=== PATIENT | female | born 1985 | race Caucasian/White ===

== ENCOUNTER 2023-02-04 19:31 | Emergency (ER) | payer BC, MEDICAID ==
[~2023-02-04] VITALS: Ht 144.8 cm; Wt 84.1 kg
[~2023-02-04 19:31] MED LIST: ARIP2TAB3 PO; BUS15T PO; CYAN500T71 PO; CYCL-394 PO; DULO-31 PO; FAMO-1 PO; FLUT16SP13 NS; GABA600T PO; LEVA15HF4 IH; LORA-512 PO; MULT1CAP34 PO; NORCO10T PO; PANT-47 PO; PROP10TA10 PO; RES15C PO; SUCR1ORA12 PO; TOP100T PO
[2023-02-04 20:18] LABS: BASOPHILS % (AUTO) 0.5 % (0-1); EOSINOPHILS # (AUTO) 0.2 X10'3 (0-0.9); EOSINOPHILS % (AUTO) 3.3 % (0-6); HEMATOCRIT 43.3 % (35.0-45.0); HEMOGLOBIN 14.6 g/dl (12.0-16.0); LYMPHOCYTES # (AUTO) 2.9 X10'3 (1.1-4.8); LYMPHOCYTES % (AUTO) 37.8 % (21-51); MEAN CORPUSCULAR HGB CONC 33.8 g/dL (33.0-36.5); MEAN CORPUSCULAR VOLUME 94.6 FL (78-98); MEAN PLATELET VOLUME 7.1 FL (7.4-10.4); MONOCYTES # (AUTO) 0.7 X10'3 (0-0.9); MONOCYTES % (AUTO) 9.3 % (2-12); NEUTROPHILS # (AUTO) 3.7 X10'3 (1.8-7.7); NEUTROPHILS % (AUTO) 49.1 % (42-75); PLATELET COUNT 387 X10'3 (140-440); RED BLOOD COUNT 4.58 X10'6 (4.20-5.60); RED CELL DISTRIBUTION WIDTH 13.1 % (11.5-14.5); WHITE BLOOD COUNT 7.5 X10'3 (4.5-11.0)
[2023-02-04 20:38] LABS: ALANINE AMINOTRANSFERASE 27 U/L (12-78); ALBUMIN 3.8 G/DL (3.4-5.0); ALKALINE PHOSPHATASE 89 IU/L (46-116); ANION GAP 5 (8-16); ASPARTATE AMINO TRANSFERASE 19 U/L (10-37); BILIRUBIN,TOTAL 0.3 MG/DL (0.1-1.0); BLOOD UREA NITROGEN 7 MG/DL (7-18); BUN/CREATININE RATIO 8.9 (10.0-20.0); CALCIUM 9.3 MG/DL (8.5-10.1); CHLORIDE 103 MMOL/L (99-107); CREATININE 0.79 MG/DL (0.40-0.90); GLUCOSE 88 MG/DL (70-104); POTASSIUM 3.6 MMOL/L (3.5-5.1); SODIUM 139 MMOL/L (135-145); TOTAL CARBON DIOXIDE 31.2 MMOL/L (24-32); TOTAL PROTEIN 7.6 G/DL (6.4-8.2); eCRCL 60 ML/MIN; eGFR 82 ML/MIN
[2023-02-04 20:38] LABS: URINE HCG NEGATIVE (NEG)
[2023-02-04 20:40] LABS: LIPASE 13 U/L (16-77)
[2023-02-04 20:53] LABS: CLARITY,URINE SLIGHTLY CLOUDY (Clear); COLOR,URINE YELLOW (Yellow); PROTEIN,URINE NEGATIVE (Neg); UA COLLECTION TYPE CLN CATCH MIDSTREAM
[2023-02-04 20:54] LABS: BILIRUBIN,URINE NEGATIVE (Neg); GLUCOSE, URINE NEGATIVE (Neg); KETONES,URINE NEGATIVE (Neg); LEUKOCYTE ESTERASE ,URINE NEGATIVE (Neg); NITRITES, URINE NEGATIVE (Neg); OCCULT BLOOD,URINE NEGATIVE (Neg)
[2023-02-04 20:56] LABS: BACTERIA,URINE FEW /HPF (Neg); MUCUS STRANDS FEW /LPF (Neg); RBC,URINE 0-2 /HPF (0-2); SQUAMOUS EPITHELIAL CELL,UR FEW /LPF (FEW); WBC,URINE 0-4 /HPF (0-4)
[2023-02-04 20:57] LABS: AMORPHOUS PHOSPHATES 2+
[2023-02-04] MEDS ORDERED: normal saline 1000ML IV soln IVB ONE (22:50)
[2023-02-04] MEDS ORDERED: mag hydrox/Alum hydrox/simeth 30ml oral suspension PO ONE (22:50)
[2023-02-04] MEDS ORDERED: diphenhydrAMINE 50 mg/ml inj IV ONE (22:50)
[2023-02-04] MEDS ORDERED: morphine 4 MG/ML inj SYRINge IV PRN (22:50)
[2023-02-04] MEDS ORDERED: LIDOcaine Viscous 15ml cup MM PRN (22:50)
[2023-02-04] MEDS ORDERED: pantoprazole 40mg IV 80 MG in normal saline 100ml IV soln 100 ML IV ONE (22:50)
[2023-02-04] MEDS ORDERED: ondansetron/PF 4mg/2ml inj IV ONE (22:50)
[2023-02-04] MEDS ORDERED: pantoprazole 40MG/NS 100ML BAG 100 ML IV ONE ×2 (23:10→23:25)
[2023-02-04] MEDS ORDERED: iohexol 300mg/ml 100ml inj. ONE (23:14)
[2023-02-04 23:36] LABS: ETHANOL < 10 MG/DL (<10)
[2023-02-04 23:37] LABS: URINE AMPHETAMINE SCREEN POSITIVE (Neg); URINE BARBITUATE SCREEN NEGATIVE (Neg); URINE BENZODIAZEPINES SCREEN NEGATIVE (Neg); URINE CANNABINOID SCREEN POSITIVE (Neg); URINE COCAINE SCREEN NEGATIVE (Neg); URINE OPIATE SCREEN NEGATIVE (Neg); URINE PHENCYCLIDINE SCREEN NEGATIVE (Neg)
[2023-02-04 23:44] LABS: APTT 31 SECONDS (22-32); PROTHROMBIN TIME 10.3 SECONDS (9.0-12.0)
[2023-02-05] MEDS ORDERED: PANT40SU2 PO (04:35)
[2023-02-05] MEDS ORDERED: METO-292 PO (04:35)
[2023-02-05] MEDS ORDERED: HYDR25SU32 RC (04:35)
[2023-02-05] MEDS ORDERED: PHEN16.234 PO (04:35)
[2023-02-05] MEDS ORDERED: BISA-79 PO (04:35)
[2023-02-05 05:07] VITALS: BP 165/116; PULSE 70; RESP 18; TEMP 98.2; O2SAT 99
== END 2023-02-05 05:09 | disposition home or self-care (01) ==
LOC: ER 19:32
DX: R10.13 Epigastric pain (principal)
CPT/HCPCS: 36415; 71045; 74176; 76700; 80053; 80305; 80320; 81001; 81025; 82948; 83690; 84484; 85025; 85610; 85730; 93005; 96365; 96366; 96375; 99285; C9113; J1200; J2405; J7030; Q9967

== ENCOUNTER 2025-02-16 11:58 | Emergency (ER) | payer MEDICAID ==
[~2025-02-16] VITALS: Ht 152.4 cm; Wt 103.0 kg
[~2025-02-16 11:58] MED LIST changes: +BISA-79 PO; +HYDR25SU32 RC; +METO-292 PO; +PANT40SU2 PO
[2025-02-16 12:00] VITALS: BP 153/90; PULSE 105; RESP 16; TEMP 98; O2SAT 98
--- NOTE | 2025-02-16 12:25 | RADIOLOGY REPORT ---
Indication: LEFT THUMB Pain Technique: DI FINGER(S)FINGERS Comparison: None FINDINGS/IMPRESSION: No radiographic evidence for acute fracture or dislocation. No significant soft tissue edema. No radiopaque foreign body. Mild degenerate changes left hand.
--- NOTE | 2025-02-16 12:26 | RADIOLOGY REPORT ---
Indication: LEFT Shoulder Pain Technique: DI SHOULDER, COMPLETE (MIN 2 VWS)SHOULDERCM Comparison: None FINDINGS/IMPRESSION: No radiographic evidence for acute fracture or dislocation. No significant soft tissue edema. No radiopaque foreign body. Mild left AC joint arthrosis. Possible left lower lung basilar airspace opacification. Recommend dedicated chest radiograph to evaluate.
--- NOTE | 2025-02-16 12:46 | Physician Documentation ---
History of Present Illness ~ Chief Complaint: Mechanical Fall Stated Complaint: FALL Time Seen by MD: 12:36 Primary Medical Doctor: torres Klein HPI Year old female tripped and fell this morning injuring her left shoulder and left thumb. States that her shoulder felt like it went out of place and now she has numbness and tingling in her left hand. She also states that her left thumb is the most painful currently Tetanus within 5 Years?: Yes Medication Reconciliation Allergies: Coded Allergies: Sulfa (Sulfonamide Antibiotics) (Unverified Allergy, Unknown, robin [place] syndrome, 02/16/25) artichoke (Unverified Adverse Reaction, Intermediate, Migraine WANG, 11/10/13) Uncoded Allergies: BEES (Allergy, Unknown, 02/27/14) Scheduled Aripiprazole* (Abilify*), 5 MG PO DAILY, (Reported) Bisacodyl (Dulcolax), 4 TAB PO ONCE Buspirone Hcl* (Buspar*), 15 MG PO TID, (Reported) Cyanocobalamin* (Vitamin B-12*), 2 TAB PO DAILY, (Reported) Cyclobenzaprine HCl (Cyclobenzaprine HCl), 10 MG PO QID, (Reported) Duloxetine Hcl* (Cymbalta*), 30 MG PO QAM, (Reported) Duloxetine Hcl* (Cymbalta*), 60 MG PO QPM, (Reported) Famotidine* (Pepcid*), 20 MG PO BID, (Reported) Gabapentin (Neurontin), 600 MG PO TID, (Reported) Hydrocortisone Acetate (Anusol-Hc), 1 SUPP RC Q12H Loratadine* (Alavert*), 1 TAB PO DAILY, (Reported) Metoclopramide HCl (Reglan), 1 TAB PO Q8H Multivitamins (Multivitamins), 1 EACH PO DAILY, (Reported) Pantoprazole Sodium (PROTONIX tablet), 40 MG PO BID Pantoprazole Sodium (Protonix), 40 MG PO BID Propranolol Hcl* (Inderal*), 2 TAB PO TID, (Reported) Sucralfate (Carafate), 10 ML PO ACHS Topiramate (Topamax), 100 MG PO BID, (Reported) Scheduled PRN Fluticasone Propionate (Fluticasone Propionate), 1 SPR NS BID PRN for allergies, (Reported) Hydrocodone Bit/Acetaminophen 10/325 MG* ([place] 10/325 MG*), 1 TAB PO TID PRN for moderate or severe pain, (Reported) Levalbuterol Tartrate* (Xopenex Inhaler*), 2 PUFF IH Q6H PRN for SOB or wheezing, (Reported) Temazepam* (Restoril*), 30 MG PO HS PRN for sleep, (Reported) Past Medical History Past Medical History: Peripheral Neuropathy, Asthma, Chronic Back Pain, Fib romyalgia, Anxiety Past Surgical History: noncontributory, other Alcohol Use: Occasionally Drug Use: none Lives with: Spouse Lives In: Home Occupation: unemployed Review of Systems All Other Systems at this time: Reviewed and Negative ROS As stated above in the HPI, otherwise all systems are reviewed and negative. Physical Exam Vital Signs: Temperature: 98.0, Source: Temporal, Heart Rate: 105, Respiratory Rate: 16, BP: 153/90, Pulse Oximetry: 98, Weight: 103.000 Oxygen Flow Rate: 0 Physical Exam General: Alert, no apparent distress. Cardiovascular: Regular rate and rhythm, no murmurs. Gastrointestinal: Soft, nontender, nondistended. Bowels sounds present. Extremities: Normal range of motion, no deformity. Positive drop-arm test in the left upper extremity, mild swelling in left thumb Neurologic: Oriented x4. Psychiatric: Normal mood and affect. Progress Results/Orders Results/Orders Orders - JOEY ROJAS CHIEF GAUGER Ortho Orders (02/16/25 ) Vital Signs 02/16/25 12:00 Temp 98.0 Pulse 105 Resp 16 B/P (MAP) 153/90 Pulse Ox 98 O2 Flow Rate 0 Medical Decision Making Additional information obtaine: N/A Findings Per my interpretation patient's x-rays do not show any acute signs of fractures. However based on the patient's complaint I feel it is prudent to have some suspicion of a possible scaphoid fracture therefore I am going to place her in a thumb spica Velcro splint to provide some immobilization so she can follow up in the outpatient setting Differential Dx:Considerations: Include: Closed head injury, Cardiac injury, Fracture(s), Intraabdominal injury, Pneumothorax, Cerebral contusion, Pulmonary contusion, Spine injury, Tracheal injury, Urological injury, Vascular injury, Abrasion(s), Contusion(s), Foreign body(s), Hematoma(s), Laceration(s), Encephalopathy, Other Departure Disposition: 01 HOME / SELF CARE / HOMELESS Impression: Primary Impression: Fall Condition: Improved Discharge Instructions: Fall Prevention in the Home, Adult, [id number] Referrals: NO PRIMARY CARE PROVIDER (PCP) Education Educated: Patient Educated regarding: diagnosis Signature Scribe Signature: e Attestation: Scribed for Joey Rojas Herbarium Curator by Joey Mcgraw NP . 02/16/25 12:45 JOEY ROJAS NP Feb 16, 2025 12:45
== END 2025-02-16 13:11 | disposition home or self-care (01) ==
LOC: ER 11:58
DX: M25.512 Pain in left shoulder (principal); M79.645 Pain in left finger(s); G89.29 Other chronic pain; J45.909 Unspecified asthma, uncomplicated; M79.7 Fibromyalgia; G62.9 Polyneuropathy, unspecified; F41.9 Anxiety disorder, unspecified; Z88.2 Allergy status to sulfonamides; Z88.8 Allergy status to other drugs, medicaments and biological substances; Z79.899 Other long term (current) drug therapy; Z72.89 Other problems related to lifestyle; Z56.0 Unemployment, unspecified; W18.30XA Fall on same level, unspecified, initial encounter; Y93.89 Activity, other specified; Y92.89 Other specified places as the place of occurrence of the external cause; Y99.8 Other external cause status
CPT/HCPCS: 29125; 73030; 73140; 99284

== ENCOUNTER 2025-03-30 14:15 | Outpatient (CLI) | payer MEDICAID ==
--- NOTE | 2025-03-30 15:04 | RADIOLOGY REPORT ---
PROCEDURE: CT CT CHEST Reason for study/Clinical History: OTHER NONSPECIFIC ABNORMAL FINDING OF LUNG FIELD Comparison Study: None Exam Date: 03/30/2025 02:26 PM TECHNIQUE: Multidetector CT of the chest was performed from the lung apices to the upper abdomen without the use of intravenous contract. Axial, coronal and sagittal multiplanar reformats were performed. Radiation Dose Information: CT Dose: CTDI volume is 18.7 mGy. Dose-length product is 634 mGy*cm The dose indicators for CT are the volume Computed Tomography (CT) Dose Index (CTDIvol) and the Dose Length Product (DLP), and are measured in units of mGy and mGy-cm, respectively. These indicators are not patient dose, but values generated from the CT scanner acquisition factors. The report includes radiation exposure data for exposures received during this examination. FINDINGS: Lower neck: Normal thyroid. Lungs: No focal consolidation, pleural effusion or pneumothorax. Heart/Vascular Structures: Normal heart size. No pericardial effusion. Lymph Nodes: No adenopathy Pleura: No pleural effusion or significant pneumothorax. Musculoskeletal: No acute osseous abnormality. Soft tissues: Intact breast prostheses. Upper abdomen: Limited portions of the upper abdomen are unremarkable. IMPRESSION: 1. No evidence of mass lesion or of acute cardiopulmonary pathology Radiation optimization: All CT scans at this facility use at least one of these dose optimization techniques: automated exposure control mA and/or kV adjustment per patient size (includes targeted exams where dose is matched to clinical indication) or iterative reconstruction.
== END 2025-03-30 23:59 | disposition home or self-care (01) ==
LOC: RAD 14:15
PROVIDERS: ATTEND Nurse Practitioner Family
DX: R91.8 Other nonspecific abnormal finding of lung field (principal); M79.642 Pain in left hand
CPT/HCPCS: 71250